=== PATIENT | male | born 1960 | race Caucasian/White ===

== ENCOUNTER 2017-01-03 13:51 | Inpatient (IN) | END 2017-01-05 18:10 | disposition home or self-care (01) | DRG 378 | DX: K92.0 Hematemesis (principal); K22.10 Ulcer of esophagus without bleeding; Q39.8 Other congenital malformations of esophagus; Z79.02 Long term (current) use of antithrombotics/antiplatelets; Z79.82 Long term (current) use of aspirin; Z95.5 Presence of coronary angioplasty implant and graft; E78.5 Hyperlipidemia, unspecified; K29.70 Gastritis, unspecified, without bleeding; K22.70 Barrett's esophagus without dysplasia ==